=== PATIENT | male | born 1980 | race American Indian/Alaskan Native ===

== ENCOUNTER 2017-05-04 16:51 | Emergency (ER) | payer SELFPAY ==
[2017-05-04 17:12] VITALS: BP 155/86
[2017-05-04 17:56] LABS: Bilirubin,Urine NEG (Negative); Blood,Urine MOD (Negative); Color,Urine Yellow (Yellow); Hyaline Casts,Urine 1 /LPF; Mucus,Urine FEW /HPF; Nitrite,Urine NEG (Negative); Urobilinogen,Urine < 2.0 mg/dL (<2.0)
[2017-05-04 18:04] LABS: Amphetamine Screen,Urine PRESUMPTIVE NEGATIVE; Cannabinoid Screen,Urine PRESUMPTIVE NEGATIVE; Cocaine Screen,Urine PRESUMPTIVE NEGATIVE; Methadone Screen,Urine PRESUMPTIVE NEGATIVE; Opiate Screen,Urine PRESUMPTIVE NEGATIVE
[2017-05-04 18:33] LABS: Benzodiazepines Screen,Urine PRESUMPTIVE POSITIVE
== END 2017-05-04 21:56 | disposition left against medical advice (07) ==
LOC: ED 16:51
DX: F10.129 Alcohol abuse with intoxication, unspecified (principal); Z53.21 Procedure and treatment not carried out due to patient leaving prior to being seen by health care provider; Z79.899 Other long term (current) drug therapy
CPT/HCPCS: 80307; 81001

== ENCOUNTER 2019-04-06 17:15 | Emergency (ER) | payer MEDICAID ==
[2019-04-06 17:57] VITALS: BP 141/91
[2019-04-06] MEDS ORDERED: THIAMINE 100 MG, FOLIC ACID 1 MG, MULTIPLE VITAMIN INJ, ADULT 10 ML in SODIUM CHLORIDE ... IV ONE (20:08)
--- NOTE | 2019-04-06 20:10 | ED Elopement Review ---
ED Pt Elopement review - Results review Lab results: pt eloped prior to my evaluation and prior to any orders being done ems ekg shows nsr without ischemic changes - Call Back decision Pt Call Back Decision: No action required
== END 2019-04-06 19:19 | disposition left against medical advice (07) ==
LOC: ED 17:15
DX: R07.89 Other chest pain (principal); Z53.21 Procedure and treatment not carried out due to patient leaving prior to being seen by health care provider
CPT/HCPCS: J3411; J7030